=== PATIENT | male | born 1990 | race African-American/Black ===

== ENCOUNTER 2024-03-14 23:19 | Emergency (ER) | payer MEDICAID ==
[~2024-03-14] VITALS: Ht 190.5 cm; Wt 77.0 kg
[2024-03-14 23:42] VITALS: BP 125/94; PULSE 67; RESP 17; TEMP 99.6; O2SAT 98
[2024-03-15] MEDS ORDERED: SULF1TAB48 MT (04:04)
[2024-03-15] MEDS ORDERED: CEPH500C2 MT (04:04)
[2024-03-15] MEDS ORDERED: BO1 TP (04:36)
[2024-03-15] MEDS ORDERED: CEPHALEXIN 250MG CAPSULE PO ONE (05:15)
[2024-03-15] MEDS ORDERED: SULFAMETHOXAZOLE/TRIMETHOPRIM 400/80MG TAB PO ONE (05:15)
== END 2024-03-15 05:06 | disposition home or self-care (01) ==
LOC: ER 23:19
DX: J32.9 Chronic sinusitis, unspecified (principal)
CPT/HCPCS: 10060; 99282; 99283

== ENCOUNTER 2024-03-28 05:21 | Emergency (ER) | payer MEDICAID ==
[~2024-03-28] VITALS: Ht 190.5 cm; Wt 77.0 kg
[~2024-03-28 05:21] MED LIST: BO1 TP; CEPH500C2 MT; SULF1TAB48 MT
[2024-03-28 05:29] VITALS: BP 107/69; TEMP 98; O2SAT 98
[2024-03-28 06:13] VITALS: PULSE 72; RESP 16
[2024-03-28] MEDS ORDERED: CEPH500C2 MT (07:04)
== END 2024-03-28 07:29 | disposition home or self-care (01) ==
LOC: ER 05:21
DX: J34.0 Abscess, furuncle and carbuncle of nose (principal); Z48.00 Encounter for change or removal of nonsurgical wound dressing
CPT/HCPCS: 99283